=== PATIENT | female | born 1945 | race Caucasian/White ===

== ENCOUNTER 2016-07-04 00:17 | Emergency (ER) | payer MEDICARE, MEDICAID ==
[~2016-07-04] VITALS: Ht 165.1 cm; Wt 90.9 kg
[~2016-07-04 00:17] MED LIST: AMLO5 PO; OMEP40CA2 PO; RANI150C PO
[2016-07-04 00:25] VITALS: BP 161/67; PULSE 82; RESP 26; O2SAT 90
[2016-07-04] MEDS ORDERED: SODIUM CHLOR 0.9% 1000 ML INJ 700 ML IV ONE (02:01)
[2016-07-04] MEDS ORDERED: SODIUM CHLOR 0.9% 1000 ML INJ 1,000 ML IV ONE ×2 (02:01)
[2016-07-04 02:05] VITALS: BP 136/63; PULSE 86; RESP 20; TEMP 98.7; O2SAT 96
[2016-07-04] MEDS ORDERED: ONDANSETRON HCL 4 MG/2 ML VIAL IV PUSH ONE (02:15)
[2016-07-04] MEDS ORDERED: ACETAMINOPHEN 325 MG TAB PO ONE (02:15)
[2016-07-04] MEDS ORDERED: ONDANSETRON HCL 4 MG/2 ML VIAL IV ONE (02:15)
[2016-07-04] MEDS ORDERED: DICL75TA PO (02:17)
[2016-07-04] MEDS ORDERED: LEVO500T3 PO (02:17)
[2016-07-04] MEDS ORDERED: predniSONE 20 MG TAB PO ONE (02:30)
[2016-07-04] MEDS ORDERED: ALBUTEROL SULFATE 90 MCG/ACT HFA 8 GM INHALER INH ONE (02:30)
[2016-07-04] MEDS ORDERED: RESP: ALBUTEROL 2.5 MG/IPRATROPIUM 0.5 MG NEB (SCH) NEB ONE (02:30)
[2016-07-04] MEDS ORDERED: OSELTAMIVIR PHOSPHATE 75 MG CAP PO ONE (02:30)
[2016-07-04] MEDS ORDERED: guaiFENesin/CODEINE SYRUP 200 MG/20 MG/10 ML CUP PO ONE (02:30)
--- NOTE | 2016-07-04 02:33 | PD ---
HPI Chief Complaint: Cold / Flu Symptoms Time Seen by Provider: 01:59 Travel History International Travel<30 days: No Contact w/Intl Traveler<30days: No Traveled to known affect area: No History of Present Illness HPI 71 y.o female presents to the ED complains of cough, fever, sinus pressure, headache, myalgia, nausea and vomiting. She states that it started about a week ago, was feeling better after a few days, then symptoms resume on Friday. She did not get a flu vaccine last year. She denies any recent travel, everyone at home has cold like symptoms. She denies any diarrhea, chest pain or abdominal pain, no bloody emesis. She tried pseudoephedrine, lozenges and aspirin at home , and has been drinking a lot of fluids. She states that she needs something that will help her sleep and also prevents her from vomiting. PFSH Past Medical History Blood Disorders: Yes (PT WAS SCHED TO HAVE HYSTERECTOMY FOR VAGINAL BLEEDING LASTING 8 1/2 WEEKS) Cancer: No Cardiovascular Problems: Yes (HTN) Diabetes: No Diminished Hearing: No Glaucoma: No Hiatal Hernia: No Hypertension: No Musculoskeletal: Yes (spinalothesis) Respiratory: Yes (HX PNEUMONIA) Thyroid Disease: No Tetanus Vaccination: Unknown Influenza Vaccination: No Menopausal: Yes Past Surgical History Gynecologic Surgery: Yes (; HYSTERECTOMY PARTIAL 2012) Hysterectomy: Yes Other Surgery: Yes Social History Alcohol Use: No Tobacco Use: No Substance Use: No Allergies-Medications (Allergen,Severity, Reaction): Coded Allergies: Sulfa (Verified Allergy, Intermediate, VOMITING, 04/29/16) Reported Meds & Prescriptions Reported Meds & Active Scripts Active Zofran Odt (Ondansetron Odt) 4 Mg Tab 4 Mg SL Q8HR PRN Prednisone 20 Mg Tab 40 Mg PO DAILY Tamiflu (Oseltamivir Phosphate) 75 Mg Cap 75 Mg PO BID 7 Days Reported Levofloxacin 500 Mg Tab 500 Mg PO DAILY Diclofenac Sodium DR (Diclofenac Sodium) 75 Mg Tabdr 75 Mg PO BID Norvasc (Amlodipine Besylate) 5 Mg Tab 5 Mg PO DAILY Review of Systems Except as stated in HPI: all other systems reviewed are Neg General / Constitutional: Positive: Fever, Chills Eyes: No: Redness HENT: Positive: Headaches, Rhinorrhea, Congestion, No: Sore Throat, Neck Stiffness Cardiovascular: No: Chest Pain or Discomfort, Palpitations, Syncope, Edema Respiratory: Positive: Cough, Shortness of Breath (when nose is very congested ), Sneezing, No: Hemoptysis, Night Sweats Gastrointestinal: Positive: Nausea, Vomiting, No: Diarrhea, Abdominal Pain Musculoskeletal: Positive: Myalgias, Pain, No: Weakness, Cramping Skin: No Rash, No Itching Neurologic: Positive: Headache, No: Weakness Hematologic/Lymphatic: No: Lymph Node Enlargement Physical Exam Narrative GENERAL: 71 y.o female, well-developed, well-nourished, alert and oriented in no acute distress, comfortably lying in bed on nasal cannula. SKIN: Warm and dry. HEAD: Atraumatic. Normocephalic. EYES: Pupils equal and round. No scleral icterus. No injection or drainage. ENT: No nasal bleeding or discharge. Mucous membranes pink and moist. NECK: Trachea midline. No JVD. No cervical adenopathy. CARDIOVASCULAR: Regular rate and rhythm. RESPIRATORY: No accessory muscle use. mildly congested, no wheezes. Breath sounds equal bilaterally. GASTROINTESTINAL: Abdomen soft, non-tender, nondistended. Hepatic and splenic margins not palpable. MUSCULOSKELETAL: Extremities without clubbing, cyanosis, or edema. No obvious deformities. NEUROLOGICAL: Awake and alert. No obvious cranial nerve deficits. Motor grossly within normal limits. Five out of 5 muscle strength in the arms and legs. Normal speech. PSYCHIATRIC: Appropriate mood and affect; insight and judgment normal. Data Data Last Documented VS Vital Signs Date Time Temp Pulse Resp B/P Pulse Ox O2 Delivery O2 Flow Rate FiO2 07/04/16 04:10 94 18 130/61 92 Nasal Cannula 2 07/04/16 02:49 21 07/04/16 02:05 98.7 Orders Acetaminophen (Tylenol) (07/04/16 02:15) Ondansetron Inj (Zofran Inj) (07/04/16 02:15) Sodium Chlor 0.9% 1000 Ml Inj (Ns 1000 M (07/04/16 02:01) Sodium Chlor 0.9% 1000 Ml Inj (Ns 1000 M (07/04/16 02:01) Sodium Chlor 0.9% 1000 Ml Inj (Ns 1000 M (07/04/16 02:01) Ondansetron Inj (Zofran Inj) (07/04/16 02:15) Oseltamivir (Tamiflu) (07/04/16 02:30) Prednisone (Deltasone) (07/04/16 02:30) Albuterol-Ipratropium Neb (Duoneb Neb) (07/04/16 02:30) Guaifen-Cod 200-20 Mg/10ml Liq (Robituss (07/04/16 02:30) Albuterol Hfa Inh (Proair Hfa Inh) (07/04/16 02:30) Complete Blood Count With Diff (07/04/16 02:46) Basic Metabolic Panel (Bmp) (07/04/16 02:46) B-Type Natriuretic Peptide (07/04/16 02:46) Ckmb (Isoenzyme) Profile (07/04/16 02:46) Troponin I (07/04/16 02:46) Iv Access Insert/Monitor (07/04/16 02:46) Electrocardiogram (07/04/16 02:46) Ecg Monitoring (07/04/16 02:46) Oximetry (07/04/16 02:46) Oxygen Administration (07/04/16 02:46) Sodium Chloride 0.9% Flush (Ns Flush) (07/04/16 03:00) Chest, Single Ap (07/04/16 ) Influenzae A/B Antigen (07/04/16 03:00) Labs Laboratory Tests Test 07/04/16 03:10 White Blood Count 8.7 TH/MM3 Red Blood Count 4.62 MIL/MM3 Hemoglobin 14.0 GM/DL Hematocrit 41.4 % Mean Corpuscular Volume 89.7 FL Mean Corpuscular Hemoglobin 30.3 PG Mean Corpuscular Hemoglobin 33.7 % Concent Red Cell Distribution Width 14.0 % Platelet Count 266 TH/MM3 Mean Platelet Volume 7.7 FL Neutrophils (%) (Auto) 54.3 % Lymphocytes (%) (Auto) 36.0 % Monocytes (%) (Auto) 8.0 % Eosinophils (%) (Auto) 1.2 % Basophils (%) (Auto) 0.5 % Neutrophils # (Auto) 4.7 TH/MM3 Lymphocytes # (Auto) 3.1 TH/MM3 Monocytes # (Auto) 0.7 TH/MM3 Eosinophils # (Auto) 0.1 TH/MM3 Basophils # (Auto) 0.0 TH/MM3 CBC Comment DIFF FINAL Differential Comment Sodium Level 140 MEQ/L Potassium Level 3.5 MEQ/L Chloride Level 104 MEQ/L Carbon Dioxide Level 28.6 MEQ/L Anion Gap 7 MEQ/L Blood Urea Nitrogen 18 MG/DL Creatinine 0.70 MG/DL Estimat Glomerular Filtration 82 ML/MIN Rate Random Glucose 126 MG/DL Calcium Level 9.0 MG/DL Total Creatine Kinase 73 U/L Troponin I LESS THAN 0.02 NG/ML B-Type Natriuretic Peptide 32 PG/ML MDM Medical Decision Making Medical Screen Exam Complete: Yes Emergency Medical Condition: Yes Medical Record Reviewed: Yes Differential Diagnosis Pneumonia, coronary disease, pneumothorax, influenza, inflammatory airway disease Narrative Course CBC & BMP Diagram 07/04/16 03:10 Troponin undetectable BNP 32 EKG reveals sinus rhythm with a rate of 88 normal axis intervals no ischemic injury pattern Last 24 hours Impressions Chest X-Ray 07/04/16 0000 Signed Impressions: Service Date/Time: June 00:54 - CONCLUSION: No significant change has occurred. Kayden Glasgow MD INfluenza negative we'll send home with albuterol and tamiflu. Influenza study is probably a false negative. The patient ambulated around the pod at a brisk pace without difficulty. She had no chest pain. Upon return to her room air O2 sat was 90% on room air. Return precautions discussed. She has no subjective dyspnea. She has no chest pain. Cause of apparent relative low sat at 90% is indeterminate however the patient is considered safe for discharge. Pulse ox increased to 95% at 427am. Pt fairly eager to go home and clinically appears quite well. Return precautions discussed. Diagnosis Primary Impression: Cough Additional Impressions: Rhinorrhea Headache Qualified Code: R51 - Nonintractable headache, unspecified chronicity pattern , unspecified headache type Nausea & vomiting Qualified Code: R11.2 - Nausea and vomiting, intractability of vomiting not specified, unspecified vomiting type Referrals: Primary Care Physician 2 days Additional Instructions: You have a choice when it comes to health care, and we are glad that you chose [facility]. Hopefully, we have met your expectations on today's visit. You are welcome to return to [facility] at any time, as we are committed to meeting the health care needs of our community. Med/Other Pt SpecificInfo: Prescription(s) given Scripts Ondansetron Odt (Zofran Odt)4 Mg Tab4 Mg SL Q8HR PRN (Nausea/Vomiting) #10 TAB Ref 0 Prov:Jan Luis MD 07/04/16 Prednisone 20 Mg Tab40 Mg PO DAILY #4 TAB Ref 0 Prov:Jan Luis MD 07/04/16 Oseltamivir (Tamiflu)75 Mg Cap75 Mg PO BID 7 Days Ref 0 Prov:Jan Luis MD 07/04/16 Disposition: 01 DISCHARGE HOME Condition: Stable Jan Luis MD Jul 04, 2016 02:33
[2016-07-04 02:49] VITALS: O2SAT 92
[2016-07-04] MEDS ORDERED: SODIUM CHLORIDE 0.9% FLUSH 5 ML FLUSH IVF PRN (03:00)
--- NOTE | 2016-07-04 03:17 | RADRPT ---
EXAM DATE/TIME: 07/04/2016 00:54 [facility] COMPARISON: CHEST SINGLE AP, December 16, 2009, 13:02. INDICATIONS : Flu symptoms. MEDICAL HISTORY : None. SURGICAL HISTORY : None. ENCOUNTER: Initial ACUITY: 1 day PAIN SCORE: 0/10 LOCATION: Bilateral chest FINDINGS: Clear lungs. Stable elevation of the right hemidiaphragm. Mild cardiomegaly. Osseous structures are i ntact. CONCLUSION: No significant change has occurred. Kayden Glasgow MD on July 04, 2016 at 3:15 Board Certified Radiologist. This report was verified electronically.
[2016-07-04 03:33] LABS: AUTOMATED NEUTROPHIL # 4.7 TH/MM3 (1.8-7.7); BASOPHIL % 0.5 % (0.0-2.0); EOSINOPHIL # 0.1 TH/MM3 (0-0.4); EOSINOPHIL % 1.2 % (0.0-4.0); HEMATOCRIT 41.4 % (35.0-46.0); HEMO FLAGS DIFF FINAL; LYMPHOCYTE # 3.1 TH/MM3 (1.0-4.8); MEAN CELL VOLUME 89.7 FL (80.0-100.0); MEAN CORPUSCULAR HEMOGLOBIN 30.3 PG (27.0-34.0); MEAN CORPUSCULAR HGB CONC 33.7 % (32.0-36.0); NEUT % 54.3 % (16.0-70.0); PLATELET COUNT 266 TH/MM3 (150-450); RED BLOOD COUNT 4.62 MIL/MM3 (4.00-5.30); WHITE BLOOD COUNT 8.7 TH/MM3 (4.0-11.0)
[2016-07-04 03:53] LABS: ANION GAP 7 MEQ/L (5-15); BICARBONATE 28.6 MEQ/L (21.0-32.0); BLOOD UREA NITROGEN 18 MG/DL (7-18); CHLORIDE 104 MEQ/L (98-107); GLOMERULAR FILTRATION RATE 82 ML/MIN (>89); POTASSIUM 3.5 MEQ/L (3.5-5.1); SODIUM (NA) 140 MEQ/L (136-145)
[2016-07-04 03:58] LABS: CREATINE KINASE 73 U/L (26-192)
[2016-07-04 04:10] VITALS: BP 130/61; PULSE 94; RESP 18; O2SAT 92
[2016-07-04] MEDS ORDERED: PRED20 PO (04:25)
[2016-07-04] MEDS ORDERED: OSEL75 PO (04:25)
[2016-07-04] MEDS ORDERED: ZOFR4TAB3 SL (04:28)
[2016-07-04 04:36] VITALS: BP 130/64
--- NOTE | 2016-07-04 08:05 | EKG ---
Date Performed: 07/04/2016 Time Performed: 04:17:06 PTAGE: 71 years EKG: Sinus rhythm BORDERLINE LEFT AXIS DEVIATION BORDERLINE ECG NO SIGNIFICANT CHANGE FROM PRIOR ELECTROCARDIOGRAM. PREVIOUS TRACING : 12/16/2009 17.28 DOCTOR: Aston Wood Interpretating Date/Time 07/04/2016 08:04:13
== END 2016-07-04 04:50 | disposition home or self-care (01) ==
LOC: NEPE 00:17
DX: R05 Cough (principal); J34.89 Other specified disorders of nose and nasal sinuses; R51 Headache; R11.2 Nausea with vomiting, unspecified; I51.7 Cardiomegaly; R06.02 Shortness of breath
CPT/HCPCS: 71010; 80048; 82550; 83880; 84484; 85025; 87804; 93005; 94664; 99284; J7512

== ENCOUNTER 2016-10-17 10:36 | Observation (INO) | payer MEDICARE, OTHER ==
[~2016-10-17] VITALS: Ht 165.1 cm; Wt 95.7 kg
[~2016-10-17 10:36] MED LIST changes: +DICL75TA PO; +LEVO500T3 PO; -OMEP40CA2 PO; +OSEL75 PO; +PRED20 PO; -RANI150C PO; +ZOFR4TAB3 SL
[2016-10-17 10:38] VITALS: BP 133/78; PULSE 80; RESP 24; TEMP 98.7; O2SAT 94
[2016-10-17] MEDS ORDERED: RANI150T PO (11:23)
[2016-10-17] MEDS ORDERED: GABA100C4 PO (11:23)
[2016-10-17] MEDS ORDERED: NAPR500T PO (11:23)
[2016-10-17] MEDS ORDERED: OMEP40CA2 PO (11:23)
[2016-10-17] MEDS ORDERED: SODIUM CHLORIDE 0.9% FLUSH 10 ML FLUSH IVF PRN (11:30)
--- NOTE | 2016-10-17 11:43 | PD ---
HPI Chief Complaint: GI Complaint Time Seen by Provider: 11:36 Travel History International Travel<30 days: No Contact w/Intl Traveler<30days: No Traveled to known affect area: No History of Present Illness HPI Patient is a 71-year-old female presenting to the emergency department for evaluation of abdominal pain and rectal bleeding. Patient states that she had spotting from her rectum yesterday, today she had bright red blood. She denies any black or tar-like stools. She reports right lower quadrant abdominal pain that sharp and constant and rates it a 4 out of 10, left lower quadrant pain is dull and intermittent and rates it 2 out of 10. She reports excessive gas and nausea that is mild in nature. She denies any vomiting, shortness of breath, fevers, chills, dysuria. Patient takes diclofenac and naproxen for chronic back pain and has been utilizing this for the abdominal pain. She reports that she had episodes of diarrhea but started herself on the brat diet yesterday and has not had any further diarrhea. Her past medical history significant for hypertension, GERD, chronic back pain. Perhaps a colonoscopy, her primary care provider is Dr. Gibson [facility] Past Medical History Cancer: No Diabetes: No Diminished Hearing: No GERD: Yes Glaucoma: No Hiatal Hernia: No Hypertension: Yes Musculoskeletal: Yes (Chronic back pain, low) Thyroid Disease: No Ulcer: Yes (per pt from overuse of ASA for tx of back pain, now using NSAIDS) Menopausal: Yes Past Surgical History Hysterectomy: Yes Other Surgery: Yes Social History Alcohol Use: No Tobacco Use: No Substance Use: No Allergies-Medications (Allergen,Severity, Reaction): Coded Allergies: Sulfa (Verified Allergy, Intermediate, VOMITING, 04/29/16) Reported Meds & Prescriptions Reported Meds & Active Scripts Active Reported Gabapentin 100 Mg Cap 100 Mg PO BID Ranitidine (Ranitidine HCl) 150 Mg Tab 150 Mg PO BID Omeprazole 40 Mg Cap 40 Mg PO DAILY Naproxen 500 Mg Tab 500 Mg PO BID PRN Diclofenac Sodium DR (Diclofenac Sodium) 75 Mg Tabdr 75 Mg PO BID Norvasc (Amlodipine Besylate) 5 Mg Tab 5 Mg PO DAILY Review of Systems Except as stated in HPI: all other systems reviewed are Neg Gastrointestinal: Positive: Nausea, Abdominal Pain, Changes in Bowel Habits, Other (RECTAL BLEEDING) Neurologic: No: Weakness Physical Exam Narrative GENERAL: Overweight, well-developed, alert female. Resting comfortably in no acute distress. SKIN: Warm and dry. HEAD: Atraumatic. Normocephalic. EYES: Pupils equal and round. No scleral icterus. No injection or drainage. ENT: No nasal bleeding or discharge. Mucous membranes pink and moist. NECK: Trachea midline. No JVD. CARDIOVASCULAR: Regular rate and rhythm. RESPIRATORY: No accessory muscle use. Clear to auscultation. Breath sounds equal bilaterally. GASTROINTESTINAL: Abdomen soft, tender to palpation in the right and left lower quadrants, no rebound, no guarding, positive bowel sounds, nondistended. Hepatic and splenic margins not palpable. MUSCULOSKELETAL: Extremities without clubbing, cyanosis, or edema. No obvious deformities. NEUROLOGICAL: Awake and alert. No obvious cranial nerve deficits. Motor grossly within normal limits. Five out of 5 muscle strength in the arms and legs. Normal speech. PSYCHIATRIC: Appropriate mood and affect; insight and judgment normal. Data Data Last Documented VS Vital Signs Date Time Temp Pulse Resp B/P Pulse Ox O2 Delivery O2 Flow Rate FiO2 10/17/16 10:38 98.7 80 24 133/78 94 Room Air Orders Complete Blood Count With Diff (10/17/16 11:18) Comprehensive Metabolic Panel (10/17/16 11:18) Lipase (10/17/16 11:18) Iv Access Insert/Monitor (10/17/16 11:18) Prothrombin Time / Inr (Pt) (10/17/16 11:18) Act Partial Throm Time (Ptt) (10/17/16 11:18) Lipase (10/17/16 11:20) Urinalysis - C+S If Indicated (10/17/16 11:20) Type And Screen (10/17/16 11:20) Ecg Monitoring (10/17/16 11:20) Oximetry (10/17/16 11:20) Sodium Chloride 0.9% Flush (Ns Flush) (10/17/16 11:30) Lactic Acid (10/17/16 11:20) Ct Abd/Pel W Iv Contrast(Rout) (10/17/16 ) Urine Culture (10/17/16 11:55) Ceftriaxone Inj (Rocephin Inj) (10/17/16 12:45) Iohexol 350 Inj (Omnipaque 350 Inj) (10/17/16 12:49) Ciprofloxacin 400 Mg Premix (Cipro 400 M (10/17/16 13:30) Metronidazole 500 Mg Inj (Flagyl 500 Mg (10/17/16 13:30) Consult General Surgery (10/17/16 ) Admit Order (Ed Use Only) (10/17/16 14:07) Admit Order (Ed Use Only) (10/17/16 14:08) Labs Laboratory Tests Test 10/17/16 10/17/16 10/17/16 11:35 11:55 12:00 White Blood Count 10.0 TH/MM3 Red Blood Count 4.50 MIL/MM3 Hemoglobin 13.5 GM/DL Hematocrit 39.9 % Mean Corpuscular Volume 88.7 FL Mean Corpuscular Hemoglobin 29.9 PG Mean Corpuscular Hemoglobin 33.7 % Concent Red Cell Distribution Width 13.9 % Platelet Count 404 TH/MM3 Mean Platelet Volume 8.4 FL Neutrophils (%) (Auto) 69.3 % Lymphocytes (%) (Auto) 21.4 % Monocytes (%) (Auto) 5.9 % Eosinophils (%) (Auto) 2.3 % Basophils (%) (Auto) 1.1 % Neutrophils # (Auto) 6.9 TH/MM3 Lymphocytes # (Auto) 2.1 TH/MM3 Monocytes # (Auto) 0.6 TH/MM3 Eosinophils # (Auto) 0.2 TH/MM3 Basophils # (Auto) 0.1 TH/MM3 CBC Comment DIFF FINAL Differential Comment Prothrombin Time 11.4 SEC Prothromb Time International 1.0 RATIO Ratio Activated Partial 29.2 SEC Thromboplast Time Sodium Level 140 MEQ/L Potassium Level 5.1 MEQ/L Chloride Level 108 MEQ/L Carbon Dioxide Level 27.5 MEQ/L Anion Gap 5 MEQ/L Blood Urea Nitrogen 19 MG/DL Creatinine 0.65 MG/DL Estimat Glomerular Filtration 90 ML/MIN Rate Random Glucose 89 MG/DL Calcium Level 9.4 MG/DL Total Bilirubin 0.5 MG/DL Aspartate Amino Transf 21 U/L (AST/SGOT) Alanine Aminotransferase 20 U/L (ALT/SGPT) Alkaline Phosphatase 98 U/L Total Protein 7.5 GM/DL Albumin 2.9 GM/DL Lipase 182 U/L Blood Type AB POSITIVE Antibody Screen NEGATIVE Urine Color YELLOW Urine Turbidity HAZY Urine pH 5.5 Urine Specific [place] 1.027 Urine Protein 30 mg/dL Urine Glucose (UA) NEG mg/dL Urine Ketones NEG mg/dL Urine Occult Blood TRACE Urine Nitrite NEG Urine Bilirubin NEG Urine Urobilinogen LESS THAN 2.0 MG/DL Urine Leukocyte Esterase TRACE Urine RBC 5 /hpf Urine WBC 3 /hpf Urine Squamous Epithelial 13 /hpf Cells Urine Bacteria MOD /hpf Urine Mucus MANY /lpf Microscopic Urinalysis Comment CULTURE INDICATED Lactic Acid Level 0.6 mmol/L MDM Medical Decision Making Medical Screen Exam Complete: Yes Emergency Medical Condition: Yes Interpretation(s) Last Impressions Abdomen/Pelvis CT 10/17/16 0000 Signed Impressions: Service Date/Time: September 12:40 - CONCLUSION: 1. Severe sigmoid diverticulosis with a small amount of extraluminal air and fluid but no drainable abscess y be a fistula or developing fistula. 2. There is a 2 cm enhancing liver lesion in the right liver near the dome. When patient's condition permits, suggest further characterization with liver protocol MRI on an outpatient basis. Austin Farris MD Vital Signs Date Time Temp Pulse Resp B/P Pulse Ox O2 Delivery O2 Flow Rate FiO2 10/17/16 10:38 98.7 80 24 133/78 94 Room Air Differential Diagnosis Colitis versus diverticulitis versus GI bleed versus obstruction versus appendicitis versus UTI versus anemia versus other Narrative Course Patient is 71-year-old female presenting to emergency evaluation abdominal pain and rectal bleeding. Patient has been utilizing both diclofenac and naproxen for her pain which would increase her risk for GI bleed. Labs and imaging ordered and pending. IV access established, patient placed on telemetry monitoring and continuous pulse oximetry. Hemoccult was positive for blood in her stool. CBC is unremarkable Chemistry is unremarkable Lactic acid is 0.6 Urinalysis is indicative of urinary tract infection, reflux urine culture pending. 1 g IV Rocephin ordered. Coags are unremarkable CT scan abdomen and pelvis shows severe sigmoid diverticulosis with a small amount of extraluminal air and fluid but no drainable abscess present. Adjacent segment of small bowel is next to the inflamed colon and therefore there may be a fistula developing fistula. IV Ciprofloxacin and Flagyl ordered This was discussed with Dr. Juarez, general surgeon who recommended patient be admitted to medicine and he would follow. Discussed with Dr. Ramirez who accepted admission. [facility]Prompt Point of Care Fecal Specimen Occult Blood: Positive Diagnosis Primary Impression: Sigmoid diverticulosis Additional Impressions: Fistula of intestine GI bleeding Qualified Code: K57.91 - Gastrointestinal hemorrhage associated with intestinal diverticulosis Condition: Stable Anamika Cee [employer] ADVISORY MANAGER October 17, 2016 11:43
[2016-10-17 11:51] LABS: AUTOMATED NEUTROPHIL # 6.9 TH/MM3 (1.8-7.7); BASOPHIL # 0.1 TH/MM3 (0-0.2); BASOPHIL % 1.1 % (0.0-2.0); EOSINOPHIL # 0.2 TH/MM3 (0-0.4); EOSINOPHIL % 2.3 % (0.0-4.0); HEMATOCRIT 39.9 % (35.0-46.0); HEMO FLAGS DIFF FINAL; LYMPH % 21.4 % (9.0-44.0); LYMPHOCYTE # 2.1 TH/MM3 (1.0-4.8); MEAN CELL VOLUME 88.7 FL (80.0-100.0); MEAN CORPUSCULAR HEMOGLOBIN 29.9 PG (27.0-34.0); MEAN CORPUSCULAR HGB CONC 33.7 % (32.0-36.0); MONO % 5.9 % (0.0-8.0); NEUT % 69.3 % (16.0-70.0); PLATELET COUNT 404 TH/MM3 (150-450); RED CELL DISTRIBUTION WIDTH 13.9 % (11.6-17.2)
[2016-10-17 12:04] LABS: APTT (PATIENT) 29.2 SEC (24.3-30.1); PROTHROMBIN TIME - PATIENT 11.4 SEC (9.8-11.6)
[2016-10-17 12:13] LABS: ALKALINE PHOSPHATASE 98 U/L (45-117); TOTAL BILIRUBIN ADULT 0.5 MG/DL (0.2-1.0)
[2016-10-17 12:18] LABS: ALT (GPT) 20 U/L (10-53); ANION GAP 5 MEQ/L (5-15); BICARBONATE 27.5 MEQ/L (21.0-32.0); BLOOD UREA NITROGEN 19 MG/DL (7-18); CHLORIDE 108 MEQ/L (98-107); GLOMERULAR FILTRATION RATE 90 ML/MIN (>89); SODIUM (NA) 140 MEQ/L (136-145)
[2016-10-17 12:19] LABS: AST (GOT) 21 U/L (15-37); POTASSIUM 5.1 MEQ/L (3.5-5.1)
[2016-10-17 12:27] LABS: BACTERIA, URINE MOD /hpf; BLOOD, URINE TRACE (NEG); COMMENT (UR) CULTURE INDICATED; CULTURE IF INDICATED CULTURE INDICATED; GLUCOSE,URINE NEG (NEG); KETONE, URINE NEG (NEG); MUCUS URINE MANY /lpf (OCC); NITRITE,URINE NEG (NEG); PH, URINE 5.5 (5.0-8.5); SQUAMOUS EPITHELIAL CELL URINE 13 /hpf (0-5); URINE COLOR YELLOW (YELLW/STRAW)
[2016-10-17] MEDS ORDERED: cefTRIAXone INJ 1,000 MG in SODIUM CHLORIDE 0.9% INJ 100 ML IV ONE (12:45)
[2016-10-17] MEDS ORDERED: IOHEXOL 350 MG/ML 10 ML VIAL (for RAD DIAG) IV ONE (12:49)
--- NOTE | 2016-10-17 13:09 | RADRPT ---
EXAM DATE/TIME: 10/17/2016 12:40 [facility] COMPARISON: No previous studies available for comparison. INDICATIONS : Abdominal pain with bloody diarrhea. IV CONTRAST: 85 cc Omnipaque 350 (iohexol) IV ORAL CONTRAST: No oral contrast ingested. RADIATION DOSE: 23.22 CTDIvol (mGy) MEDICAL HISTORY : Hypertension. SURGICAL HISTORY : Hysterectomy. ENCOUNTER: Initial ACUITY: 2 weeks PAIN SCALE: 5/10 LOCATION: Bilateral lower quadrant TECHNIQUE: Volumetric scanning of the abdomen and pelvis was performed. Using automated exposure control and ad justment of the mA and/or kV according to patient size, radiation dose was kept as low as reasonably achievable to obtain optimal diagnostic quality images. FINDINGS: LOWER LUNGS: There is atelectasis at the right lung base. LIVER: The liver measures 14.8 cm in length. There is an enhancing lesion near the liver dome in the region of segment 8 measuring approximately 2 cm. In the right posterior liver there is a lobulated cyst luke suring 19 mm. There is no dilation of the biliary tree. No calcified gallstones. SPLEEN: Normal size without lesion. PANCREAS: Within normal limits. KIDNEYS: Normal in size and shape. There is no mass, stone or hydronephrosis. ADRENAL GLANDS: Within normal limits. VASCULAR: There is no aortic aneurysm. There is mild atherosclerotic disease. BOWEL/MESENTERY: The stomach and small bowel demonstrate no acute finding. There is severe sigmoid diverticulosis with wall thickening and surrounding inflammation. There is a small amount of extraluminal air and fluid. There are a few mildly enlarged regional lymph nodes. A segment of small bowel is directly adjacent to the inflammatory changes. There is no distant free air or drainable abscess. ABDOMINAL WALL: Within normal limits. RETROPERITONEUM: There is no lymphadenopathy. BLADDER: No wall thickening or mass. REPRODUCTIVE: Uterus is absent. INGUINAL: There is no lymphadenopathy or hernia. MUSCULOSKELETAL: There are degenerative changes of the lumbar spine. CONCLUSION: 1. Severe sigmoid diverticulosis with a small amount of extraluminal air and fluid but no drainable a bscess is present. There also a few mildly enlarged regional lymph nodes. An adjacent segment of smal l bowel is next to the inflamed colon and therefore there may be a fistula or developing fistula. 2. There is a 2 cm enhancing liver lesion in the right liver near the dome. When patient's condition permits, suggest further characterization with liver protocol MRI on an outpatient basis. Austin Farris MD on October 17, 2016 at 12:59 Board Certified Radiologist. This report was verified electronically.
[2016-10-17] MEDS ORDERED: CIPROFLOXACIN 400 MG PREMIX 200 ML IV ONE (13:30)
[2016-10-17] MEDS ORDERED: metroNIDAZOLE 500 MG INJ 100 ML IV ONE (13:30)
[2016-10-17] MEDS ORDERED: ACETAMINOPHEN/HYDROcodone 325 MG/5 MG TAB PO PRN (14:15)
[2016-10-17] MEDS ORDERED: ACETAMINOPHEN 325 MG TAB PO PRN (14:15)
[2016-10-17] MEDS ORDERED: SODIUM CHLORIDE 0.9% FLUSH 10 ML FLUSH IV FLUSH PRN (14:15)
[2016-10-17] MEDS ORDERED: ACETAMINOPHEN/HYDROcodone 325 MG/7.5 MG TAB PO PRN (14:15)
[2016-10-17] MEDS ORDERED: NALOXONE HCL 0.4 MG/ML AMP IV PRN (14:15)
[2016-10-17] MEDS ORDERED: MORPHINE SULFATE 4 MG/ML INJ IV PRN ×3 (14:15)
--- NOTE | 2016-10-17 15:14 | HHI.HP ---
[facility] Service [place] [facility] Primary Care Physician ELAINE Reza Admission Diagnosis severe sigmoid diverticulosis, questionable fistula, UTI Diagnoses: Chief Complaint: Rectal bleeding, abdominal pain Travel History International Travel<30 Days: No Contact w/Intl Traveler <30 Da: No Traveled to Known Affected Are: No History of Present Illness Written by Jarrell De Paz, acting as scribe for Dr. Ramirez on 10/17/16 at 15:14. 71-year-old female with a past medical history of PUD, HTN, spondylosis who presented with rectal bleeding and abdominal pain. The patient states that she' s been having intermittent episodes of constipation and diarrhea for the past 10 days. Currently she's been having diarrhea since yesterday. She states that yesterday she noticed spots of blood in the toilet. The patient states that the toilet paper was red today which prompted her to come for evaluation. She has been having lower abdominal pain. The patient states that she has chronic left lower dull abdominal pain since being diagnosed with diverticulosis 6 years ago. She also is having sharp right-sided abdominal pain for the past few days. She reports that she has a history of bleeding ulcer in the past due to aspirin use. She denies ever having an EGD or colonoscopy however. She has been taking diclofenac for back pain. General surgery was contacted from the ED and recommended admission to medicine and will consult. Review of Systems Except as stated in HPI: all other systems reviewed are Neg Past Family Social History Past Medical History Hypertension GERD/PUD Spondylosis Past Surgical History Hysterectomy Reported Medications Reviewed from pill bottles at bedside: Active meds Gabapentin 100 Mg Cap 100 Mg PO BID Ranitidine (Ranitidine HCl) 150 Mg Tab 150 Mg PO BID Diclofenac Sodium DR (Diclofenac Sodium) 75 Mg Tabdr 75 Mg PO BID Norvasc (Amlodipine Besylate) 5 Mg Tab 5 Mg PO DAILY Allergies: Coded Allergies: Sulfa (Verified Allergy, Intermediate, VOMITING, 04/29/16) Active Ordered Medications Current Medications Medications (Trade) Dose Ordered Sig/Cameron Route Start Time Stop Time Status Last Admin Sodium Chloride 2 ml 2 ml UNSCH PRN IVF 10/17/16 11:30 Ciprofloxacin/ Dextrose 200 ml @ 200 mls/hr Q12H IV 10/17/16 22:00 (Flagyl 500 Mg Inj) 100 ml @ 100 mls/hr Q6H IV 10/17/16 20:00 (NS Flush) 2 ml UNSCH PRN IV FLUSH 10/17/16 14:15 (NS Flush) 2 ml BID IV FLUSH 10/17/16 21:00 (Tylenol) 650 mg Q4H PRN PO 10/17/16 14:15 (Zofran Inj) 4 mg Q6H PRN IVP 10/17/16 14:15 (Tylenol) 650 mg Q6H PRN PO 10/17/16 14:15 ([place]bush 5-325 Mg) 1 tab Q4H PRN PO 10/17/16 14:15 ([place] 7.5-325 Mg) 1 tab Q4H PRN PO 10/17/16 14:15 (Morphine Inj) 1 mg Q3H PRN IV 10/17/16 14:15 (Morphine Inj) 2 mg Q3H PRN IV 10/17/16 14:15 (Morphine Inj) 2 mg Q3H PRN IV 10/17/16 14:15 Naloxone HCl 0.4 mg 0.4 mg UNSCH PRN IV 10/17/16 14:15 (NS 1000 ml Inj) 1,000 ml @ 100 mls/hr Q10H IV 10/17/16 14:15 (Protonix Inj) 40 mg Q24H IV PUSH 10/17/16 16:00 (Neurontin) 100 mg BID PO 10/17/16 21:00 Family History Father with heart disease Mother with CVA Social History Denies any alcohol or tobacco use Lives at home with her Physical Exam Vital Signs Vital Signs Date Time Temp Pulse Resp B/P Pulse Ox O2 Delivery O2 Flow Rate FiO2 10/17/16 10:38 98.7 80 24 133/78 94 Room Air Physical Exam GENERAL: Well-developed well-nourished. In no acute distress. SKIN: Warm and dry. No lesions noted. HEENT: Normocephalic. Pupils equal and round. Mucous membranes pink and moist. CARDIOVASCULAR: Regular rate and rhythm. No murmur appreciated. RESPIRATORY: No accessory muscle use. Clear to auscultation. Breath sounds equal bilaterally. GASTROINTESTINAL: Abdomen soft, dull left upper and lower TTP, nondistended. Bowel sounds x4. MUSCULOSKELETAL: No obvious deformities. No clubbing or cyanosis. No edema. NEUROLOGICAL: Awake and alert. No focal neurological deficits. Moves upper and lower extremities spontaneously. Normal speech. PSYCHIATRIC: Appropriate mood and affect; insight and judgment normal. Laboratory Laboratory Tests Test 10/17/16 10/17/16 10/17/16 11:35 11:55 12:00 White Blood Count 10.0 Red Blood Count 4.50 Hemoglobin 13.5 Hematocrit 39.9 Mean Corpuscular Volume 88.7 Mean Corpuscular Hemoglobin 29.9 Mean Corpuscular Hemoglobin 33.7 Concent Red Cell Distribution Width 13.9 Platelet Count 404 Mean Platelet Volume 8.4 Neutrophils (%) (Auto) 69.3 Lymphocytes (%) (Auto) 21.4 Monocytes (%) (Auto) 5.9 Eosinophils (%) (Auto) 2.3 Basophils (%) (Auto) 1.1 Neutrophils # (Auto) 6.9 Lymphocytes # (Auto) 2.1 Monocytes # (Auto) 0.6 Eosinophils # (Auto) 0.2 Basophils # (Auto) 0.1 CBC Comment DIFF FINAL Differential Comment Prothrombin Time 11.4 Prothromb Time International 1.0 Ratio Activated Partial 29.2 Thromboplast Time Sodium Level 140 Potassium Level 5.1 Chloride Level 108 Carbon Dioxide Level 27.5 Anion Gap 5 Blood Urea Nitrogen 19 Creatinine 0.65 Estimat Glomerular Filtration 90 Rate Random Glucose 89 Calcium Level 9.4 Total Bilirubin 0.5 Aspartate Amino Transf 21 (AST/SGOT) Alanine Aminotransferase 20 (ALT/SGPT) Alkaline Phosphatase 98 Total Protein 7.5 Albumin 2.9 Lipase 182 Blood Type AB POSITIVE Antibody Screen NEGATIVE Urine Color YELLOW Urine Turbidity HAZY Urine pH 5.5 Urine Specific [place] 1.027 Urine Protein 30 Urine Glucose (UA) NEG Urine Ketones NEG Urine Occult Blood TRACE Urine Nitrite NEG Urine Bilirubin NEG Urine Urobilinogen LESS THAN 2.0 Urine Leukocyte Esterase TRACE Urine RBC 5 Urine WBC 3 Urine Squamous Epithelial 13 Cells Urine Bacteria MOD Urine Mucus MANY Microscopic Urinalysis Comment CULTURE INDICATED Lactic Acid Level 0.6 Date/Time Procedure Status Source Growth 10/17/16 11:55 Urine Culture Received Urine Random Urine Pending Result Diagram: 10/17/16 1135 10/17/16 1135 Imaging Last Impressions Abdomen/Pelvis CT 10/17/16 0000 Signed Impressions: Service Date/Time: September 12:40 - CONCLUSION: 1. Severe sigmoid diverticulosis with a small amount of extraluminal air and fluid but no drainable abscess is present. There also a few mildly enlarged regional lymph nodes. An adjacent segment of small bowel is next to the inflamed colon and therefore there may be a fistula or developing fistula. 2. There is a 2 cm enhancing liver lesion in the right liver near the dome. When patient's condition permits, suggest further characterization with liver protocol MRI on an outpatient basis. Austin Farris MD Assessment and Plan Problem List: (1) GI bleeding ICD Code: K92.2 Status: Acute Assessment and Plan 71-year-old female with a past medical history of PUD, HTN, spondylosis who presented with rectal bleeding and abdominal pain Diverticular bleeding: Mild, hemodynamically stable. Reviewed: CT abdomen with severe sigmoid diverticulosis with small amount of extraluminal air and fluid, but no drainable abscess present; and adjacent segment of small bowel was adjacent to inflamed colon and therefore there may be a fistula or developing fistula. Hemoglobin 13.5. -General surgery consulted, and follow-up recommendations -Monitor serial H&H -Nothing by mouth for now pending surgery input -IVF -No NSAIDs, patient educated -Pain control with IV morphine and oral Greenbush as tolerated -PPI -IV Cipro and Flagyl UTI: UA with evidence of UTI. Continue antibiotics. Follow up urine culture. Liver lesion: Abdominal CT showed 2 cm enhancing liver lesion in the right near the dome; MRI recommended. Patient instructed to follow up as outpatient for this. DVT prophylaxis: SCDs Discussed Condition With Patient, ED staff This note was transcribed by sherri De Paz. I, Dr. Quinn Ramirez personally performed the history, physical exam, and medical decision making; and confirmed the accuracy of the information in the transcribed note. Authenticated by Dr. Quinn Ramirez on 10/17/16 at 15:38. Problem Qualifiers (1) GI bleeding: Qualified Code: K57.91 - Gastrointestinal hemorrhage associated with intestinal diverticulosis Jarrell De Paz October 17, 2016 15:14 Quinn Ramirez MD October 17, 2016 15:38
--- NOTE | 2016-10-17 15:25 | PD ---
Physical Exam Narrative GENERAL: Well-nourished, well-developed patient. SKIN: Warm and dry. HEAD: Normocephalic and atraumatic. EYES: No injection or drainage. ENT: No nasal drainage noted. NECK: Supple, trachea midline. CARDIOVASCULAR: Regular rate and rhythm RESPIRATORY: no increased effort. No accessory muscle use. GASTROINTESTINAL: Abdomen soft, ttp in llq, nondistended. NEUROLOGICAL: Awake and alert. moves all extremities. Normal speech. Data Data Last Documented VS Vital Signs Date Time Temp Pulse Resp B/P Pulse Ox O2 Delivery O2 Flow Rate FiO2 10/17/16 10:38 98.7 80 24 133/78 94 Room Air Orders Complete Blood Count With Diff (10/17/16 11:18) Comprehensive Metabolic Panel (10/17/16 11:18) Lipase (10/17/16 11:18) Iv Access Insert/Monitor (10/17/16 11:18) Prothrombin Time / Inr (Pt) (10/17/16 11:18) Act Partial Throm Time (Ptt) (10/17/16 11:18) Lipase (10/17/16 11:20) Urinalysis - C+S If Indicated (10/17/16 11:20) Type And Screen (10/17/16 11:20) Ecg Monitoring (10/17/16 11:20) Oximetry (10/17/16 11:20) Sodium Chloride 0.9% Flush (Ns Flush) (10/17/16 11:30) Lactic Acid (10/17/16 11:20) Ct Abd/Pel W Iv Contrast(Rout) (10/17/16 ) Urine Culture (10/17/16 11:55) Ceftriaxone Inj (Rocephin Inj) (10/17/16 12:45) Iohexol 350 Inj (Omnipaque 350 Inj) (10/17/16 12:49) Ciprofloxacin 400 Mg Premix (Cipro 400 M (10/17/16 13:30) Metronidazole 500 Mg Inj (Flagyl 500 Mg (10/17/16 13:30) Consult General Surgery (10/17/16 ) Admit Order (Ed Use Only) (10/17/16 14:07) Admit Order (Ed Use Only) (10/17/16 14:08) Labs Laboratory Tests Test 10/17/16 10/17/16 10/17/16 11:35 11:55 12:00 White Blood Count 10.0 TH/MM3 Red Blood Count 4.50 MIL/MM3 Hemoglobin 13.5 GM/DL Hematocrit 39.9 % Mean Corpuscular Volume 88.7 FL Mean Corpuscular Hemoglobin 29.9 PG Mean Corpuscular Hemoglobin 33.7 % Concent Red Cell Distribution Width 13.9 % Platelet Count 404 TH/MM3 Mean Platelet Volume 8.4 FL Neutrophils (%) (Auto) 69.3 % Lymphocytes (%) (Auto) 21.4 % Monocytes (%) (Auto) 5.9 % Eosinophils (%) (Auto) 2.3 % Basophils (%) (Auto) 1.1 % Neutrophils # (Auto) 6.9 TH/MM3 Lymphocytes # (Auto) 2.1 TH/MM3 Monocytes # (Auto) 0.6 TH/MM3 Eosinophils # (Auto) 0.2 TH/MM3 Basophils # (Auto) 0.1 TH/MM3 CBC Comment DIFF FINAL Differential Comment Prothrombin Time 11.4 SEC Prothromb Time International 1.0 RATIO Ratio Activated Partial 29.2 SEC Thromboplast Time Sodium Level 140 MEQ/L Potassium Level 5.1 MEQ/L Chloride Level 108 MEQ/L Carbon Dioxide Level 27.5 MEQ/L Anion Gap 5 MEQ/L Blood Urea Nitrogen 19 MG/DL Creatinine 0.65 MG/DL Estimat Glomerular Filtration 90 ML/MIN Rate Random Glucose 89 MG/DL Calcium Level 9.4 MG/DL Total Bilirubin 0.5 MG/DL Aspartate Amino Transf 21 U/L (AST/SGOT) Alanine Aminotransferase 20 U/L (ALT/SGPT) Alkaline Phosphatase 98 U/L Total Protein 7.5 GM/DL Albumin 2.9 GM/DL Lipase 182 U/L Blood Type AB POSITIVE Antibody Screen NEGATIVE Urine Color YELLOW Urine Turbidity HAZY Urine pH 5.5 Urine Specific [place] 1.027 Urine Protein 30 mg/dL Urine Glucose (UA) NEG mg/dL Urine Ketones NEG mg/dL Urine Occult Blood TRACE Urine Nitrite NEG Urine Bilirubin NEG Urine Urobilinogen LESS THAN 2.0 MG/DL Urine Leukocyte Esterase TRACE Urine RBC 5 /hpf Urine WBC 3 /hpf Urine Squamous Epithelial 13 /hpf Cells Urine Bacteria MOD /hpf Urine Mucus MANY /lpf Microscopic Urinalysis Comment CULTURE INDICATED Lactic Acid Level 0.6 mmol/L MDM Supervised Visit with BRAULIO: Yes Interpretation(s) CBC & BMP Diagram 10/17/16 11:35 Last 24 hours Impressions Abdomen/Pelvis CT 10/17/16 0000 Signed Impressions: Service Date/Time: September 12:40 - CONCLUSION: 1. Severe sigmoid diverticulosis with a small amount of extraluminal air and fluid but no drainable abscess is present. There also a few mildly enlarged regional lymph nodes. An adjacent segment of small bowel is next to the inflamed colon and therefore there may be a fistula or developing fistula. 2. There is a 2 cm enhancing liver lesion in the right liver near the dome. When patient's condition permits, suggest further characterization with liver protocol MRI on an outpatient basis. Austin Farris MD Narrative Course I, Dr. ely, have reviewed the advance practice practitioner's documentation and am in agreement, met with the patient face to face, made the diagnosis, and the medical decision making was done by me. *My assessment and Findings: 71-year-old female presents with abdominal pain and diarrhea. Workup reveals extraluminal air and concern for fistula. Patient with prior history of diverticulitis. Case was discussed with surgery and will be admitted to medicine. Antibiotics ordered, I updated patient Diagnosis Primary Impression: Perforated viscus Additional Impressions: GI bleeding Qualified Code: K57.91 - Gastrointestinal hemorrhage associated with intestinal diverticulosis Sigmoid diverticulosis Fistula of intestine Condition: Stable Altagracia Ely MD October 17, 2016 15:25
[2016-10-17] MEDS: SODIUM CHLOR 0.9% 1000 ML INJ 1,000 ML IV SCH ×2 (17:30→17:40)
[2016-10-17 19:55] VITALS: BP 124/63; PULSE 70; RESP 16; TEMP 98.1; O2SAT 94
[2016-10-17] MEDS: GABAPENTIN 100 MG CAP PO SCH (21:10)
[2016-10-17] MEDS: PANTOPRAZOLE SODIUM 40 MG VIAL IV PUSH SCH (21:10)
[2016-10-17] MEDS: SODIUM CHLORIDE 0.9% FLUSH 10 ML FLUSH IV FLUSH SCH (21:11)
[2016-10-17] MEDS: metroNIDAZOLE 500 MG INJ 100 ML IV SCH (21:11)
[2016-10-17] MEDS: CIPROFLOXACIN 400 MG PREMIX 200 ML IV SCH (21:11)
[2016-10-17 21:46] LABS: HEMATOCRIT 38.3 % (35.0-46.0); REVIEW FLAG FINAL
[2016-10-17 23:17] VITALS: BP 132/56; PULSE 68; RESP 16; TEMP 97.8; O2SAT 95
[2016-10-18] VITALS (7 sets, daily range): BP systolic 112–125; BP diastolic 55–59; PULSE 63–77; RESP 16–20; TEMP 97.9–98.9; O2SAT 93–95
--- NOTE | 2016-10-18 00:09 | MB ---
cc: YOANA MURDOCK MD DATE OF CONSULTATION 10/17/16 REASON FOR CONSULTATION Diverticulitis. HISTORY OF PRESENT ILLNESS The patient is a 71-year-old female who presents with history of ulcer, hypertension, spondylolisthesis. She complains of rectal bleeding and acute onset of abdominal pain. She stated the pain has been lasting for approximately 10 days. She describes the pain as sharp, intermittent, continues to get worse, radiates to bilateral lower quadrants more severe on the left associated with no fevers. Complains of episodes of constipation and diarrhea and noted some bleeding in the toilet. This prompted her to come to the emergency department for further evaluation including hemoglobin which was 13.[address] scan showing severe sigmoid diverticulosis with inflammation diverticulitis, small amount of extraluminal air and fluid, no abscess. Minimal enlarged lymphadenopathy, possible fistulization and a liver lesion. Surgery was consulted for further evaluation. On my exam the patient is resting comfortably. She says her pain has improved a little bit with IV pain medications. Her labs indicate white blood cell count of 10 and she is currently afebrile. She states she had a previous episode "6 years ago" with treatment of pain control and antibiotics and discharged now. No CAT scan was done at this time. The patient also has history of questionable GI bleed with peptic ulcer disease. And she states she was treated for this approximately 2 years ago without any EGD or colonoscopy. On further questioning she states she has not had a colonoscopy due to insurance issues. She has had no other bouts of diverticulitis to her knowledge. PAST MEDICAL HISTORY Reflux, peptic ulcer disease, hypertension, spondylolisthesis. PAST SURGICAL HISTORY Hysterectomy. MEDICATIONS See EMR. ALLERGIES SULFA. FAMILY HISTORY Father heart disease. Mother with stroke. SOCIAL HISTORY Denies EtOH or smoking. Lives at home. REVIEW OF SYSTEMS GENERAL: The patient denies headaches or fevers. HEENT: Denies eye pain, ear pain. NECK: Denies swallowing pain. CHEST: Denies cough or wheeze. HEART: Denies palpitations or chest pain. ABDOMEN: Complains of minimal nausea. Complained of abdominal pain. Complained of diarrhea. : Denies dysuria, hematuria. ENDOCRINE: Denies polyuria, polydipsia. INTEGUMENT: Denies new masses or lesions. PSYCH: Appropriate mood and affect. PHYSICAL EXAMINATION GENERAL: The patient no acute distress. VITAL SIGNS: Temperature 98.7, pulse 80, respiration 24, blood pressure 133/78, 94% on room air. HEENT: PERRLA, EOMI. LUNGS: Clear to auscultation bilateral expansion. HEART: S1-S2 regular rhythm. ABDOMEN: Soft, positive tenderness to palpation lower quadrant, more significant on the left. No rebound. No guarding. Well-healed surgical scar. EXTREMITIES: Warm, well-perfused. : Within normal limits. PSYCH: No change in sensorium. Appropriate affect. NEUROLOGIC: GCS 15 and moving all extremities. LABORATORY AND DIAGNOSTIC DATA WBC 10, hemoglobin 13.5, hematocrit 39.9, platelets 404, sodium 140, potassium 5.1, chloride 108, BUN 19, creatinine 0.65, T-bili 0.5, AST 21, ALT 20, alkaline phosphatase 98, lipase 182. IMAGING STUDIES CT reviewed by myself severe sigmoid diverticulitis, diverticulosis, small extraluminal air, adjacent minimal fluid, enlarged lymph node, possible fistulization. 2 cm enhancing liver lesion. ASSESSMENT The patient is a 71-year-old female with acute diverticulitis, diverticulosis, liver lesion. PLAN After full clinical and radiologic laboratory workup the patient with above-named issue including acute diverticulitis, diverticulosis. At this point I recommend close monitoring to hemoglobin and coags. Transfusion if needed. Continue observation for a perforated diverticulitis, IV fluids, IV antibiotics, bowel rest. Discussed with the patient if the patient's signs become ___ then we will discuss operative intervention. However, we will continue to observe this now and let it cool off and discuss potential operative intervention in the future of 6 weeks to 2 months. The patient will also need a colonoscopy, consider GI consultation this hospital stay for further evaluation of GI bleed and future colonoscopy and endoscopy potentially as well. MD ALISHA Rodriguez/NADIA /11:06 PM /11:53 PM
[2016-10-18] MEDS: metroNIDAZOLE 500 MG INJ 100 ML IV SCH ×4 (02:17→20:31)
[2016-10-18 06:13] LABS: AUTOMATED NEUTROPHIL # 6.4 TH/MM3 (1.8-7.7); BASOPHIL # 0.1 TH/MM3 (0-0.2); BASOPHIL % 0.7 % (0.0-2.0); EOSINOPHIL # 0.4 TH/MM3 (0-0.4); EOSINOPHIL % 3.7 % (0.0-4.0); HEMATOCRIT 35.2 % (35.0-46.0); HEMO FLAGS DIFF FINAL; LYMPH % 22.1 % (9.0-44.0); LYMPHOCYTE # 2.2 TH/MM3 (1.0-4.8); MEAN CELL VOLUME 89.7 FL (80.0-100.0); MEAN CORPUSCULAR HEMOGLOBIN 30.2 PG (27.0-34.0); MEAN CORPUSCULAR HGB CONC 33.6 % (32.0-36.0); MONO % 7.7 % (0.0-8.0); NEUT % 65.8 % (16.0-70.0); PLATELET COUNT 295 TH/MM3 (150-450); RED BLOOD COUNT 3.93 MIL/MM3 (4.00-5.30); RED CELL DISTRIBUTION WIDTH 13.5 % (11.6-17.2); WHITE BLOOD COUNT 9.7 TH/MM3 (4.0-11.0)
[2016-10-18 06:32] LABS: BICARBONATE 26.6 MEQ/L (21.0-32.0); POTASSIUM 3.8 MEQ/L (3.5-5.1)
[2016-10-18] MEDS: SODIUM CHLOR 0.9% 1000 ML INJ 1,000 ML IV SCH (08:15)
[2016-10-18] MEDS: SODIUM CHLORIDE 0.9% FLUSH 10 ML FLUSH IV FLUSH SCH ×2 (08:15→20:31)
[2016-10-18] MEDS: GABAPENTIN 100 MG CAP PO SCH ×2 (08:15→20:31)
[2016-10-18] MEDS: CIPROFLOXACIN 400 MG PREMIX 200 ML IV SCH ×2 (09:29→20:31)
[2016-10-18] MEDS: ONDANSETRON HCL 4 MG/2 ML VIAL IVP PRN ×2 (09:30→15:05)
--- NOTE | 2016-10-18 14:35 | PD.CONS ---
HPI History of Present Illness This is a 71 year old female with a past medical history of PUD, HTN, spondylosis who presented with rectal bleeding and abdominal pain. The patient reports severe diarrhea for the past on week, she has tried Imodium and diet measures with out relief. No BM since admission. She reports lower abd pain for the past 10 days, but improving today. Reports chronic intermittent abdomen pain since she was diagnosed with diverticulosis 6 years ago. 2 days prior to admission, she noticed spotting of red blood on the wipe, a day prior to admission, she noticed worsening rectal bleed on the tissue and that prompted the hospital visit. She denies previous history of this. She denies ever having an EGD or colonoscopy. She reports that she has a history of bleeding ulcer in the past due to aspirin use, states she was having black tarry stools in April of last year, but that resolved and was discharged on omeprazole. She has been taking diclofenac for back pain and lots of Aspirin. CT on (10/17/16 ) --->1. Severe sigmoid diverticulosis with a small amount of extraluminal air and fluid but no drainable abscess is present. There also a few mildly enlarged regional lymph nodes. An adjacent segment of small bowel is next to the inflamed colon and therefore there may be a fistula or developing fistula. 2. There is a 2 cm enhancing liver lesion in the right liver near the dome. When patient's condition permits, suggest further characterization with liver protocol MRI on an outpatient basis. General surgery was contacted and recommended medical management for now with conservative measures. Labs revealed a drop in hgb from 13.5 to 11.8. She reports chills, no fever. She denies melena, vomiting or hematemesis. She had an episode of vomiting today post a dose of narco. (Clemente Arguello) PFSH Past Medical History Hypertension GERD/PUD Spondylosis Past Surgical History Hysterectomy (Clemente Arguello) Coded Allergies: Sulfa (Verified Allergy, Intermediate, VOMITING, 04/29/16) Medications Current Medications Medications (Trade) Dose Ordered Sig/Cameron Route Start Time Stop Time Status Last Admin Sodium Chloride 2 ml 2 ml UNSCH PRN IVF 10/17/16 11:30 Ciprofloxacin/ Dextrose 200 ml @ 200 mls/hr Q12H IV 10/17/16 22:00 10/18/16 09:29 (Flagyl 500 Mg Inj) 100 ml @ 100 mls/hr Q6H IV 10/17/16 20:00 10/18/16 13:40 (NS Flush) 2 ml UNSCH PRN IV FLUSH 10/17/16 14:15 (NS Flush) 2 ml BID IV FLUSH 10/17/16 21:00 10/18/16 08:15 (Tylenol) 650 mg Q4H PRN PO 10/17/16 14:15 10/17/16 17:50 (Zofran Inj) 4 mg Q6H PRN IVP 10/17/16 14:15 10/18/16 09:30 (Tylenol) 650 mg Q6H PRN PO 10/17/16 14:15 ([place] 5-325 Mg) 1 tab Q4H PRN PO 10/17/16 14:15 10/18/16 08:18 ([place] 7.5-325 Mg) 1 tab Q4H PRN PO 10/17/16 14:15 10/17/16 21:11 (Morphine Inj) 1 mg Q3H PRN IV 10/17/16 14:15 (Morphine Inj) 2 mg Q3H PRN IV 10/17/16 14:15 (Morphine Inj) 2 mg Q3H PRN IV 10/17/16 14:15 10/17/16 23:21 Naloxone HCl 0.4 mg 0.4 mg UNSCH PRN IV 10/17/16 14:15 (NS 1000 ml Inj) 1,000 ml @ 100 mls/hr Q10H IV 10/17/16 14:15 10/18/16 08:15 (Protonix Inj) 40 mg Q24H IV PUSH 10/17/16 16:00 10/17/16 21:10 (Neurontin) 100 mg BID PO 10/17/16 21:00 10/17/16 21:10 Family History Father with heart disease Mother with CVA Social History Denies any alcohol or tobacco use (Clemente Arguello) Review of Systems Constitutional: COMPLAINS OF: Chills Endocrine: DENIES: Polyuria Eyes: DENIES: Double Vision Ears, nose, mouth, throat: DENIES: Hoarseness Respiratory: DENIES: Shortness of breath Cardiovascular: DENIES: Lower Extremity Edema Gastrointestinal: COMPLAINS OF: Abdominal pain, Bloody stools, Diarrhea, Nausea , Vomiting, Anorexia, DENIES: Black stools, Constipation, Difficulty Swallowing , Odynophagia, Swelling of Abdomen, Heartburn, Hematemesis Genitourinary: DENIES: Hematuria Musculoskeletal: DENIES: Back pain Integumentary: DENIES: Jaundice Hematologic/lymphatic: DENIES: Lymphadenopathy Immunologic/allergic: DENIES: Eczema Neurologic: DENIES: Abnormal gait Psychiatric: DENIES: Anxiety (Clemente Arguello [employer]) GI Exam Vitals I&O Vital Signs Date Time Temp Pulse Resp B/P Pulse Ox O2 Delivery O2 Flow Rate FiO2 10/18/16 11:45 98.1 63 16 115/59 93 10/18/16 08:15 94 Room Air 10/18/16 08:00 74 10/18/16 07:30 98.7 74 16 116/58 94 10/18/16 04:30 98.3 63 16 112/55 94 10/17/16 23:17 97.8 68 16 132/56 95 10/17/16 20:15 Room Air 10/17/16 19:55 98.1 70 16 124/63 94 I/O 10/17/16 10/17/16 10/17/16 10/18/16 10/18/16 10/18/16 06:59 14:59 22:59 06:59 14:59 22:59 Intake Total 604 ml 652 ml Output Total 200 ml 200 ml Balance 604 ml 452 ml -200 ml Intake Oral 0 ml IV Total 604 ml 652 ml Output Urine Total 200 ml 200 ml # Voids 1 # Bowel Movements 0 Imaging Last Impressions Abdomen/Pelvis CT 10/17/16 0000 Signed Impressions: Service Date/Time: September 12:40 - CONCLUSION: 1. Severe sigmoid diverticulosis with a small amount of extraluminal air and fluid but no drainable abscess is present. There also a few mildly enlarged regional lymph nodes. An adjacent segment of small bowel is next to the inflamed colon and therefore there may be a fistula or developing fistula. 2. There is a 2 cm enhancing liver lesion in the right liver near the dome. When patient's condition permits, suggest further characterization with liver protocol MRI on an outpatient basis. Austin Farris MD Laboratory Test 10/17/16 10/18/16 21:11 05:51 Hemoglobin 12.9 GM/DL 11.8 GM/DL Hematocrit 38.3 % 35.2 % White Blood Count 9.7 TH/MM3 Red Blood Count 3.93 MIL/MM3 Mean Corpuscular Volume 89.7 FL Mean Corpuscular Hemoglobin 30.2 PG Mean Corpuscular Hemoglobin 33.6 % Concent Red Cell Distribution Width 13.5 % Platelet Count 295 TH/MM3 Mean Platelet Volume 7.4 FL Neutrophils (%) (Auto) 65.8 % Lymphocytes (%) (Auto) 22.1 % Monocytes (%) (Auto) 7.7 % Eosinophils (%) (Auto) 3.7 % Basophils (%) (Auto) 0.7 % Neutrophils # (Auto) 6.4 TH/MM3 Lymphocytes # (Auto) 2.2 TH/MM3 Monocytes # (Auto) 0.7 TH/MM3 Eosinophils # (Auto) 0.4 TH/MM3 Basophils # (Auto) 0.1 TH/MM3 CBC Comment DIFF FINAL Differential Comment Sodium Level 141 MEQ/L Potassium Level 3.8 MEQ/L Chloride Level 107 MEQ/L Carbon Dioxide Level 26.6 MEQ/L Anion Gap 7 MEQ/L Blood Urea Nitrogen 16 MG/DL Creatinine 0.49 MG/DL Estimat Glomerular Filtration 124 ML/MIN Rate Random Glucose 84 MG/DL Calcium Level 8.7 MG/DL Date/Time Procedure Status Source Growth 10/17/16 11:55 Urine Culture - Final Complete Urine Random Urine 50-100,000 CFU/ML MIXED GRAM POSITIVE... Physical Examination HEENT: normocephalic; atraumatic; no jaundice. NECK: Neck is supple, no JVD, no lymphadenopathy. CHEST: Chest is clear to auscultation and percussion. CARDIAC: Regular rate and rhythm with no murmur gallop or rubs. ABDOMEN: Soft, nondistended, lower abd tenderness; no hepatosplenomegaly; bowel sounds are present in all four quadrants. EXTREMITIES: No clubbing, cyanosis, or edema. SKIN: Normal; no rash; no jaundice. ROD FILLER: No focal deficits; alert and oriented times three. (Clemente Arguello) Assessment and Plan Plan - Acute diverticulitis with bleeding/possible fistula or microperforation- CT on (10/17/16) --->1. Severe sigmoid diverticulosis with a small amount of extraluminal air and fluid but no drainable abscess is present. There also a few mildly enlarged regional lymph nodes. An adjacent segment of small bowel is next to the inflamed colon and therefore there may be a fistula or developing fistula. 2. There is a 2 cm enhancing liver lesion in the right liver near the dome. When patient's condition permits, suggest further characterization with liver protocol MRI on an outpatient basis. General surgery was contacted and recommended medical management for now with conservative measures. Labs revealed a drop in hgb from 13.5 to 11.8. She reports chills, no fever. She denies melena, vomiting or hematemesis. She had an episode of vomiting today post a dose of narco. She never had EGD/colonoscopy - liver lesion- imaging as above, recommend MRI as an OP - Diarrhea- X one week. She denies recent abx ,suspicious foods or recent travel. She did have a cold 10 days ago - UTI - Hx of PUD, melena- hx of heavy Aspirin and NSAIDs intake - Hx of spondylosis, per attending Plan: - NPO - Will hold off on endoscopy for now unless absolutely necessary - Colonoscopy in 6-8 weeks unless actively bleeding - Can have Ice chips - Cont. Cipro and Flagyl - GS on the case - Stool studies - Monitor hh - Transfuse as needed - cont. PPI - Supportive care - Patient seen and examined by Dr. Steele and myself and this note is written on his behalf. (Clemente Arguello) Physician Comments Patient seen and examined Agree with above Continue with current supportive care Monitor labs Colonoscopy probably 6-[address] unless patient is actively bleeding (Maninder Steele MD) Clemente Arguello October 18, 2016 14:35 Maninder Steele MD October 18, 2016 19:36
--- NOTE | 2016-10-18 14:45 | HHI.PR ---
Subjective Subjective Notes Resting in bed Pain much improved from yesterday Objective Vitals/I&O Vital Signs Date Time Temp Pulse Resp B/P Pulse Ox O2 Delivery O2 Flow Rate FiO2 10/18/16 11:45 98.1 63 16 115/59 93 10/18/16 08:15 Room Air Labs Laboratory Tests Test 10/17/16 10/18/16 21:11 05:51 Hemoglobin 12.9 11.8 Hematocrit 38.3 35.2 White Blood Count 9.7 Red Blood Count 3.93 Mean Corpuscular Volume 89.7 Mean Corpuscular Hemoglobin 30.2 Mean Corpuscular Hemoglobin 33.6 Concent Red Cell Distribution Width 13.5 Platelet Count 295 Mean Platelet Volume 7.4 Neutrophils (%) (Auto) 65.8 Lymphocytes (%) (Auto) 22.1 Monocytes (%) (Auto) 7.7 Eosinophils (%) (Auto) 3.7 Basophils (%) (Auto) 0.7 Neutrophils # (Auto) 6.4 Lymphocytes # (Auto) 2.2 Monocytes # (Auto) 0.7 Eosinophils # (Auto) 0.4 Basophils # (Auto) 0.1 CBC Comment DIFF FINAL Differential Comment Sodium Level 141 Potassium Level 3.8 Chloride Level 107 Carbon Dioxide Level 26.6 Anion Gap 7 Blood Urea Nitrogen 16 Creatinine 0.49 Estimat Glomerular Filtration 124 Rate Random Glucose 84 Calcium Level 8.7 Date/Time Procedure Status Source Growth 10/17/16 11:55 Urine Culture - Final Complete Urine Random Urine 50-100,000 CFU/ML MIXED GRAM POSITIVE... Cardiovascular: Regular Lungs: Clear Abdomen: Non-distended, Other (mild LLQ tenderness with palpation ) Extremities: No edema A/P Assessment and Plan 71 year old female with acute diverticulitis -Continue antibiotics ---Cipro/Flagyl -NPO; okay for ice chips -Continue to monitor WBC --today 9.7 -Pain control -OOB and mobilize -Continue non operative treatment Attending Statement Patient seen at bedside responding to abx continue abdominal exams Attestation The exam, history, and the medical decision-making described in the above note were completed with the assistance of the mid-level provider. I reviewed and agree with the findings presented. I attest that I had a [id number] encounter with the patient on the same day, and personally performed and documented my assessment and findings in the medical record. Jessica Urbina October 18, 2016 14:45 David Juarez MD Oct 27, 2016 21:36
[2016-10-18 14:51] LABS: REVIEW FLAG FINAL
[2016-10-18] MEDS: ACETAMINOPHEN 325 MG TAB PO PRN (15:05)
[2016-10-18] MEDS: PANTOPRAZOLE SODIUM 40 MG VIAL IV PUSH SCH (15:05)
[2016-10-18] MEDS: DEXT 5%-NACL 0.45% 1000 ML INJ 1,000 ML IV SCH (18:02)
[2016-10-19] VITALS: BP 156/76; PULSE 83; RESP 20; TEMP 98.4; O2SAT 94
--- NOTE | 2016-10-19 | HHI.PR ---
Subjective Remarks date of service 10/18/16. patient seen the morning of 10/18. patient denies any chest pain or shortness of breath.she does report a dull frontal headache. She reports she has a history of headaches in the past if he goes too long without eating.no focal signs or symptoms. discussed with nursing. We'll start on D5. Objective Vital Signs Date Time Temp Pulse Resp B/P Pulse Ox O2 Delivery O2 Flow Rate FiO2 10/18/16 20:30 98.9 71 20 125/59 95 10/18/16 15:45 97.9 66 16 119/57 95 10/18/16 11:45 98.1 63 16 115/59 93 10/18/16 08:15 94 Room Air 10/18/16 08:00 74 10/18/16 07:30 98.7 74 16 116/58 94 10/18/16 04:30 98.3 63 16 112/55 94 I/O 10/17/16 10/17/16 10/17/16 10/18/16 10/18/16 10/18/16 07:00 15:00 23:00 07:00 15:00 23:00 Intake Total 604 ml 652 ml 0 ml Output Total 200 ml 700 ml 100 ml Balance 604 ml 452 ml -700 ml -100 ml Intake Oral 0 ml 0 ml IV Total 604 ml 652 ml Output Urine Total 200 ml 700 ml 100 ml # Voids 1 1 # Bowel Movements 0 0 Result Diagram: 10/18/16 1352 10/18/16 0551 Objective Remarks GENERAL: patient lying in bed. Appears uncomfortable secondary to headache. She is alert and oriented 3. SKIN: Warm and dry. HEAD: Normocephalic. EYES: No scleral icterus. No injection or drainage. NECK: Supple, trachea midline. No JVD. CARDIOVASCULAR: Regular rate and rhythm without murmurs, gallops, or rubs. RESPIRATORY: Breath sounds equal bilaterally. No accessory muscle use. GASTROINTESTINAL: Abdomen soft, tenderness to moderate palpation. No rebound or guarding. MUSCULOSKELETAL: No cyanosis, or edema. BACK: Nontender without obvious deformity. No CVA tenderness. A/P Assessment and Plan 71-year-old female with a past medical history of PUD, HTN, spondylosis who presented with rectal bleeding and abdominal pain //Diverticular bleeding: Mild, hemodynamically stable. Reviewed: CT abdomen with severe sigmoid diverticulosis with small amount of extraluminal air and fluid, but no drainable abscess present; and adjacent segment of small bowel was adjacent to inflamed colon and therefore there may be a fistula or developing fistula. Hemoglobin 13.5. -Hemoglobin continues relatively stable with slow decline. -General surgery following. Appreciate assistance. Continue antibiotics. //Headache. Patient reports headache is likely secondary to not eating. We'll start on D5. Monitor. //UTI: UA with evidence of UTI. Continue antibiotics. Follow up urine culture.. Mixed gram-positive octavia. Patient will be on antibiotics nonetheless for diverticulitis. //Liver lesion: Abdominal CT showed 2 cm enhancing liver lesion in the right near the dome; MRI recommended. Patient will need follow-up outpatient for this DVT prophylaxis: SCDs Discharge Planning home when cleared by general surgery. Nikolay Alonzo MD October 19, 2016 00:00
[2016-10-19] MEDS: DEXT 5%-NACL 0.45% 1000 ML INJ 1,000 ML IV SCH ×2 (01:26→16:37)
[2016-10-19] MEDS: ACETAMINOPHEN 325 MG TAB PO PRN (01:26)
[2016-10-19] MEDS: metroNIDAZOLE 500 MG INJ 100 ML IV SCH ×3 (01:27→14:59)
[2016-10-19 04:00] VITALS: BP 119/75; PULSE 75; RESP 16; TEMP 98.4; O2SAT 92
[2016-10-19 07:55] VITALS: O2SAT 94
[2016-10-19 08:00] VITALS: BP 144/67; PULSE 64; PULSE 67; RESP 20; TEMP 97.8; O2SAT 97
[2016-10-19 08:28] LABS: AUTOMATED NEUTROPHIL # 4.8 TH/MM3 (1.8-7.7); BASOPHIL % 0.4 % (0.0-2.0); EOSINOPHIL # 0.1 TH/MM3 (0-0.4); EOSINOPHIL % 1.9 % (0.0-4.0); HEMATOCRIT 35.4 % (35.0-46.0); HEMO FLAGS DIFF FINAL; LYMPH % 24.7 % (9.0-44.0); LYMPHOCYTE # 1.8 TH/MM3 (1.0-4.8); MEAN CORPUSCULAR HEMOGLOBIN 30.9 PG (27.0-34.0); MEAN CORPUSCULAR HGB CONC 34.7 % (32.0-36.0); MONO % 6.7 % (0.0-8.0); NEUT % 66.3 % (16.0-70.0); PLATELET COUNT 328 TH/MM3 (150-450); RED BLOOD COUNT 3.98 MIL/MM3 (4.00-5.30); RED CELL DISTRIBUTION WIDTH 13.3 % (11.6-17.2); WHITE BLOOD COUNT 7.3 TH/MM3 (4.0-11.0)
[2016-10-19 08:58] LABS: ALKALINE PHOSPHATASE 80 U/L (45-117); ALT (GPT) 13 U/L (10-53); ANION GAP 5 MEQ/L (5-15); AST (GOT) 9 U/L (15-37); BICARBONATE 29.6 MEQ/L (21.0-32.0); BLOOD UREA NITROGEN 10 MG/DL (7-18); CHLORIDE 106 MEQ/L (98-107); GLOMERULAR FILTRATION RATE 107 ML/MIN (>89); POTASSIUM 3.8 MEQ/L (3.5-5.1); SODIUM (NA) 141 MEQ/L (136-145); TOTAL BILIRUBIN ADULT 0.3 MG/DL (0.2-1.0)
[2016-10-19] MEDS: SODIUM CHLORIDE 0.9% FLUSH 10 ML FLUSH IV FLUSH SCH (09:00)
[2016-10-19] MEDS: GABAPENTIN 100 MG CAP PO SCH (09:04)
--- NOTE | 2016-10-19 10:23 | HHI.PR ---
Subjective Subjective Notes feels fine, wants to eat, minimal pain Objective Vitals/I&O Vital Signs Date Time Temp Pulse Resp B/P Pulse Ox O2 Delivery O2 Flow Rate FiO2 10/19/16 08:00 97.8 67 20 144/67 97 10/19/16 04:00 Room Air Labs Laboratory Tests Test 10/18/16 10/19/16 13:52 06:59 Hemoglobin 11.9 12.3 Hematocrit 37.0 35.4 White Blood Count 7.3 Red Blood Count 3.98 Mean Corpuscular Volume 89.0 Mean Corpuscular Hemoglobin 30.9 Mean Corpuscular Hemoglobin 34.7 Concent Red Cell Distribution Width 13.3 Platelet Count 328 Mean Platelet Volume 7.7 Neutrophils (%) (Auto) 66.3 Lymphocytes (%) (Auto) 24.7 Monocytes (%) (Auto) 6.7 Eosinophils (%) (Auto) 1.9 Basophils (%) (Auto) 0.4 Neutrophils # (Auto) 4.8 Lymphocytes # (Auto) 1.8 Monocytes # (Auto) 0.5 Eosinophils # (Auto) 0.1 Basophils # (Auto) 0.0 CBC Comment DIFF FINAL Differential Comment Sodium Level 141 Potassium Level 3.8 Chloride Level 106 Carbon Dioxide Level 29.6 Anion Gap 5 Blood Urea Nitrogen 10 Creatinine 0.56 Estimat Glomerular Filtration 107 Rate Random Glucose 125 Calcium Level 8.9 Magnesium Level 2.0 Total Bilirubin 0.3 Aspartate Amino Transf 9 (AST/SGOT) Alanine Aminotransferase 13 (ALT/SGPT) Alkaline Phosphatase 80 Total Protein 6.3 Albumin 2.5 Date/Time Procedure Status Source Growth 10/17/16 11:55 Urine Culture - Final Complete Urine Random Urine 50-100,000 CFU/ML MIXED GRAM POSITIVE... Abdomen: Non-distended, Non-tender A/P Assessment and Plan diverticulitis - improved ok for po diet switch to PO abx and DC FU Dr Juarez in office Michael Krueger MD October 19, 2016 10:23
[2016-10-19] MEDS: CIPROFLOXACIN 400 MG PREMIX 200 ML IV SCH (10:38)
[2016-10-19 12:00] VITALS: BP 146/66; PULSE 72; RESP 20; TEMP 98.2; O2SAT 95
[2016-10-19] MEDS ORDERED: CIPR500T2 PO (15:58)
[2016-10-19] MEDS ORDERED: METR500T10 PO (15:58)
[2016-10-19 16:00] VITALS: BP 186/81; PULSE 70; RESP 20; TEMP 98; O2SAT 97
[2016-10-19] MEDS: PANTOPRAZOLE SODIUM 40 MG VIAL IV PUSH SCH (16:00)
--- NOTE | 2016-10-19 17:58 | HHI.GIFU ---
Subjective Remarks Pt improving clinically Minimal abdominal discomfort today Tolerating advanced diet. (Pamela Wells) Objective Vitals I&O Vital Signs Date Time Temp Pulse Resp B/P Pulse Ox O2 Delivery O2 Flow Rate FiO2 10/19/16 16:00 98.0 70 20 186/81 97 10/19/16 12:00 98.2 72 20 146/66 95 10/19/16 08:00 97.8 67 20 144/67 97 10/19/16 07:55 94 21 10/19/16 04:00 Room Air 10/19/16 04:00 98.4 75 16 119/75 92 10/19/16 02:26 16 10/19/16 00:00 Room Air 10/19/16 00:00 98.4 83 20 156/76 94 10/18/16 20:30 98.9 71 20 125/59 95 10/18/16 20:15 Room Air 10/18/16 20:00 77 I/O 10/18/16 10/18/16 10/18/16 10/19/16 10/19/16 10/19/16 07:00 15:00 23:00 07:00 15:00 23:00 Intake Total 652 ml 793 ml 652 ml Output Total 200 ml 700 ml 100 ml Balance 452 ml -700 ml 693 ml 652 ml Intake Oral 0 ml 0 ml 0 ml IV Total 652 ml 793 ml 652 ml Output Urine Total 200 ml 700 ml 100 ml # Voids 1 5 3 # Bowel Movements 0 0 0 Laboratory Laboratory Tests Test 10/19/16 06:59 White Blood Count 7.3 Red Blood Count 3.98 Hemoglobin 12.3 Hematocrit 35.4 Mean Corpuscular Volume 89.0 Mean Corpuscular Hemoglobin 30.9 Mean Corpuscular Hemoglobin 34.7 Concent Red Cell Distribution Width 13.3 Platelet Count 328 Mean Platelet Volume 7.7 Neutrophils (%) (Auto) 66.3 Lymphocytes (%) (Auto) 24.7 Monocytes (%) (Auto) 6.7 Eosinophils (%) (Auto) 1.9 Basophils (%) (Auto) 0.4 Neutrophils # (Auto) 4.8 Lymphocytes # (Auto) 1.8 Monocytes # (Auto) 0.5 Eosinophils # (Auto) 0.1 Basophils # (Auto) 0.0 CBC Comment DIFF FINAL Differential Comment Sodium Level 141 Potassium Level 3.8 Chloride Level 106 Carbon Dioxide Level 29.6 Anion Gap 5 Blood Urea Nitrogen 10 Creatinine 0.56 Estimat Glomerular Filtration 107 Rate Random Glucose 125 Calcium Level 8.9 Magnesium Level 2.0 Total Bilirubin 0.3 Aspartate Amino Transf 9 (AST/SGOT) Alanine Aminotransferase 13 (ALT/SGPT) Alkaline Phosphatase 80 Total Protein 6.3 Albumin 2.5 Date/Time Procedure Status Source Growth 10/17/16 11:55 Urine Culture - Final Complete Urine Random Urine 50-100,000 CFU/ML MIXED GRAM POSITIVE... Imaging Last Impressions Abdomen/Pelvis CT 10/17/16 0000 Signed Impressions: Service Date/Time: , October 17, 2016 12:40 - CONCLUSION: 1. Severe sigmoid diverticulosis with a small amount of extraluminal air and fluid but no drainable abscess is present. There also a few mildly enlarged regional lymph nodes. An adjacent segment of small bowel is next to the inflamed colon and therefore there may be a fistula or developing fistula. 2. There is a 2 cm enhancing liver lesion in the right liver near the dome. When patient's condition permits, suggest further characterization with liver protocol MRI on an outpatient basis. Austin Farris MD Physical Exam GENERAL: NAD, AAOx3 CHEST: CTA CARDIAC: Regular ABDOMEN: +BS, soft, nondistended, LLQ tenderness EXTREMITIES: No clubbing, cyanosis, or edema. SKIN: Normal; no rash; no jaundice. (Pamela Wells) Assessment and Plan Plan - Acute diverticulitis with bleeding/possible fistula or microperforation. CT Abd/pelvis (10/17/16) ---> Severe sigmoid diverticulosis with a small amount of extraluminal air and fluid but no drainable abscess is present. There also a few mildly enlarged regional lymph nodes. An adjacent segment of small bowel is next to the inflamed colon and therefore there may be a fistula or developing fistula. There is a 2 cm enhancing liver lesion in the right liver near the dome. General surgery following and recommended conservative management. Cipro and Flagyl IV. Afebrile. She never had EGD/colonoscopy. Pt improving clinically and is planned for discharge this evening. - Liver lesion- imaging as above, recommend MRI as an OP - Diarrhea- X one week. She denies recent abx ,suspicious foods or recent travel. - Hx of PUD, melena- hx of heavy Aspirin and NSAIDs intake - Hx of spondylosis, per attending Plan: - Pt is being prescribed Cipro/Flagyl x 12 days - Pt will need outpt followup with GI in 2 weeks. - She will need outpt MRI to further evaluate the liver lesion. - Supportive care - Patient seen and examined by Dr. Jones and myself and this note is written on his behalf. (Pamela Wells) Physician Comments Seen and examined, plan as above Will follow up with you. (Ashanti Jones MD) Pamela Wells October 19, 2016 17:58 Ashanti Jones MD October 20, 2016 04:59
--- NOTE | 2016-10-24 07:07 | HHI.DS ---
Discharge Summary Admission Date October 17, 2016 at 14:09 Discharge Date: October 19, 2016 Admitting Diagnosis severe sigmoid diverticulosis, questionable fistula, UTI (1) GI bleeding ICD Code: K92.2 Procedures no invasive procedures performed. Brief History - From Admission Written by Jarrell De Paz, acting as scribe for Dr. Ramirez on 10/17/16 at 15:14. 71-year-old female with a past medical history of PUD, HTN, spondylosis who presented with rectal bleeding and abdominal pain. The patient states that she' s been having intermittent episodes of constipation and diarrhea for the past 10 days. Currently she's been having diarrhea since yesterday. She states that yesterday she noticed spots of blood in the toilet. The patient states that the toilet paper was red today which prompted her to come for evaluation. She has been having lower abdominal pain. The patient states that she has chronic left lower dull abdominal pain since being diagnosed with diverticulosis 6 years ago. She also is having sharp right-sided abdominal pain for the past few days. She reports that she has a history of bleeding ulcer in the past due to aspirin use. She denies ever having an EGD or colonoscopy however. She has been taking diclofenac for back pain. General surgery was contacted from the ED and recommended admission to medicine and will consult. Imaging Last Impressions Abdomen/Pelvis CT 10/17/16 0000 Signed Impressions: Service Date/Time: September 12:40 - CONCLUSION: 1. Severe sigmoid diverticulosis with a small amount of extraluminal air and fluid but no drainable abscess is present. There also a few mildly enlarged regional lymph nodes. An adjacent segment of small bowel is next to the inflamed colon and therefore there may be a fistula or developing fistula. 2. There is a 2 cm enhancing liver lesion in the right liver near the dome. When patient's condition permits, suggest further characterization with liver protocol MRI on an outpatient basis. Austin Farris MD PE at Discharge GENERAL: patient lying in bed. appears comfortable. She is alert and oriented 3. SKIN: Warm and dry. HEAD: Normocephalic. EYES: No scleral icterus. No injection or drainage. NECK: Supple, trachea midline. No JVD. CARDIOVASCULAR: Regular rate and rhythm without murmurs, gallops, or rubs. RESPIRATORY: Breath sounds equal bilaterally. No accessory muscle use. GASTROINTESTINAL: Abdomen soft,nontender. No rebound or guarding. MUSCULOSKELETAL: No cyanosis, or edema. BACK: Nontender without obvious deformity. No CVA tenderness. Pt update on day of discharge patient says she is feeling all right. Pain is controlled. Feels like going home. Hospital Course 71-year-old female with a past medical history of PUD, HTN, spondylosis who presented with rectal bleeding and abdominal pain. Found to have diverticulitis on CT abdomen. Gastroenterology was consult at. Pain improvedwith antibiotics. Patient is found to have possible fistula on imaging. patient has liver cyst on imaging as above. Will need follow-up with GI for this. She'll need follow-up with GI and general surgery as outpatient. Antibiotics to complete treatment course. //Diverticular bleeding: Mild, hemodynamically stable. Reviewed: CT abdomen with severe sigmoid diverticulosis with small amount of extraluminal air and fluid, but no drainable abscess present; and adjacent segment of small bowel was adjacent to inflamed colon and therefore there may be a fistula or developing fistula. Hemoglobin 13.5. -Hemoglobin continues relatively stable with slow decline. -General surgery following. Appreciate assistance. Continue antibiotics. //Headache. Patient reports headache is likely secondary to not eating. resolved with D5, resumption of diet. //UTI: UA with evidence of UTI. Continue antibiotics. Follow up urine culture.. Mixed gram-positive octavia. Patient will be on antibiotics nonetheless for diverticulitis. //Liver lesion: Abdominal CT showed 2 cm enhancing liver lesion in the right near the dome; MRI recommended. Patient will need follow-up outpatient for this DVT prophylaxis: SCDs Discharge Planning home when cleared by general surgery. Pt Condition on Discharge: Good Discharge Disposition: Discharge Home Discharge Time: > 30 minutes Discharge Instructions DIET: Follow Instructions for: As Tolerated, No Restrictions, Low Residue Diet Activities you can perform: Regular-No Restrictions Follow up Referrals: Gastroenterology - 2 Weeks with Maninder Steele MD PCP Follow-up - 1 Week with Nidhi GibsonP Surgical - 1 Week with David Juarez MD New Medications: Ciprofloxacin (Ciprofloxacin) 500 Mg Tab 500 MG PO BID Infection #24 Ref 0 TAB Metronidazole (Metronidazole) 500 Mg Tab 500 MG PO BID Infection #24 Ref 0 TAB Continued Medications: Amlodipine (Norvasc) 5 Mg Tab 5 MG PO DAILY Blood Pressure Management #30 Ref 0 TAB Gabapentin (Gabapentin) 100 Mg Cap 100 MG PO BID #60 Ref 0 CAP Omeprazole (Omeprazole) 40 Mg Cap 40 MG PO DAILY #30 Ref 0 CAP Ranitidine (Ranitidine) 150 Mg Tab 150 MG PO BID Heartburn Management #60 Ref 0 TAB Discontinued Medications: Diclofenac Sodium DR (Diclofenac Sodium DR) 75 Mg Tabdr 75 MG PO BID #60 Ref 0 TAB Naproxen (Naproxen) 500 Mg Tab 500 MG PO BID PRN PAIN SCALE 1 TO 10 #60 Ref 0 TAB Nikolay Alonzo MD Oct 24, 2016 07:07
== END 2016-10-19 18:28 | disposition home or self-care (01) ==
LOC: NEPE 10:36 → INTOOBSV 14:09 → NEDA 14:09 → N04A 18:54
PROVIDERS: ADMIT Internal Medicine; ATTEND Internal Medicine
DX: K57.33 Diverticulitis of large intestine without perforation or abscess with bleeding (principal); K21.9 Gastro-esophageal reflux disease without esophagitis; I10 Essential (primary) hypertension; G89.29 Other chronic pain; M54.9 Dorsalgia, unspecified; Z79.899 Other long term (current) drug therapy; E66.3 Overweight; K76.89 Other specified diseases of liver; N39.0 Urinary tract infection, site not specified; K63.2 Fistula of intestine; Z87.11 Personal history of peptic ulcer disease; K52.9 Noninfective gastroenteritis and colitis, unspecified; M47.9 Spondylosis, unspecified; R51 Headache; B96.89 Other specified bacterial agents as the cause of diseases classified elsewhere
CPT/HCPCS: 74177; 80048; 80053; 81001; 83605; 83690; 83735; 85014; 85018; 85025; 85610; 85730; 86850; 86900; 86901; 87086; 96374; 96375; 99285; C9113; G0378; J0696; J0744; J2270; J2405; J7030; Q9967